=== PATIENT | female | born 1960 | race Caucasian/White ===

== ENCOUNTER → 2020-04-12 | Outpatient (CLI) | payer BC | LOC: EROP 20:30 | DX: R06.00 Dyspnea, unspecified (principal); Z20.822 Contact with and (suspected) exposure to COVID-19 | CPT/HCPCS: 87635 ==

== ENCOUNTER → 2020-05-20 | Outpatient (CLI) | payer BC ==
[2020-05-20 09:22] LABS: RED BLOOD COUNT 4.83 M/UL (4.00-5.10); WHITE BLOOD COUNT 6.5 K/UL (4.5-11.0)
== END ==
LOC: LAB 08:51
PROVIDERS: Internal Medicine
DX: I10 Essential (primary) hypertension (principal)
CPT/HCPCS: 36415; 80048; 80061; 80076; 84443; 85025

== ENCOUNTER → 2020-05-31 | Outpatient (CLI) | payer BC | LOC: US 15:40 | DX: E04.9 Nontoxic goiter, unspecified (principal); E04.2 Nontoxic multinodular goiter | CPT/HCPCS: 76536 ==

== ENCOUNTER → 2021-01-11 | Outpatient (CLI) | payer BC ==
[~2021-01-11] VITALS: Ht 160 cm; Wt 93.0 kg
== END ==
LOC: EROP 10:20
DX: U07.1 COVID-19 (principal); Z23 Encounter for immunization
CPT/HCPCS: 96365

== ENCOUNTER → 2021-01-11 | Outpatient (CLI) | payer OTHER | LOC: EROP 09:02 | DX: U07.1 COVID-19 (principal) | CPT/HCPCS: U0002 ==

== ENCOUNTER → 2021-04-20 | Outpatient (CLI) | payer BC ==
[2021-04-21 07:10] LABS: A/G RATIO 2.3 (1.2-2.2); ALKALINE PHOSPHATASE, S 90 IU/L (44-121); ALT (SGPT) 14 IU/L (0-32); AST (SGOT) 21 IU/L (0-40); BILIRUBIN, TOTAL 0.3 mg/dL (0.0-1.2); BUN 18 mg/dL (6-24); BUN/CREATININE RATIO 18 (9-23); CALCIUM, SERUM 9.8 mg/dL (8.7-10.2); CARBON DIOXIDE, TOTAL 26 mmol/L (20-29); CHLORIDE, SERUM 102 mmol/L (96-106); CREATININE, SERUM 0.99 mg/dL (0.57-1.00); EGFR IF AFRICN AM 72 (>59); EGFR IF NONAFRICN AM 63 (>59); ESTIM. AVG GLU (EAG) 114 mg/dL (.); GLOBULIN, TOTAL 2.1 g/dL (1.5-4.5); GLUCOSE, SERUM 90 mg/dL (65-99); HEMOGLOBIN A1C 5.6 % (4.8-5.6); POTASSIUM, SERUM 4.8 mmol/L (3.5-5.2); SODIUM, SERUM 141 mmol/L (134-144)
[2021-04-21 08:13] LABS: CHOLESTEROL, TOTAL 201 mg/dL (100-199); HDL CHOLESTEROL 64 mg/dL (>39); LDL CHOLESTEROL CALC 111 mg/dL (0-99); LDL/HDL RATIO 1.7 ratio (0.0-3.2); T. CHOL/HDL RATIO 3.1 ratio (0.0-4.4); TRIGLYCERIDES 151 mg/dL (0-149); TSH 0.037 uIU/mL (0.450-4.500)
== END ==
LOC: LAB 09:03
DX: M86.171 Other acute osteomyelitis, right ankle and foot (principal)
CPT/HCPCS: 36415; 80053; 80061; 83036; 84443; 86141

== ENCOUNTER → 2021-07-18 | Outpatient (CLI) | payer BC | LOC: LAB 15:44 | DX: E89.0 Postprocedural hypothyroidism (principal) | CPT/HCPCS: 36415; 84443 ==

== ENCOUNTER → 2021-07-19 | Outpatient (CLI) | payer BC | LOC: HEART 5 07-06 09:00 | DX: I08.3 Combined rheumatic disorders of mitral, aortic and tricuspid valves (principal) | CPT/HCPCS: 93306 ==

== ENCOUNTER → 2021-10-21 | Outpatient (CLI) | payer BC | LOC: LAB 14:41 | DX: E89.0 Postprocedural hypothyroidism (principal) | CPT/HCPCS: 36415; 84443 ==

== ENCOUNTER → 2021-11-04 | Outpatient (CLI) | payer BC | LOC: LAB 12:27 | DX: E03.9 Hypothyroidism, unspecified (principal); R03.0 Elevated blood-pressure reading, without diagnosis of hypertension; E66.9 Obesity, unspecified; E28.2 Polycystic ovarian syndrome; R73.03 Prediabetes; R79.82 Elevated C-reactive protein (CRP); E78.5 Hyperlipidemia, unspecified | CPT/HCPCS: 36415; 80061; 83036; 86140; 86141 ==